=== PATIENT | female | born 2000 | race Hispanic/Latino ===

== ENCOUNTER 2021-12-29 11:21 | Emergency (ER) | payer OTHER ==
[~2021-12-29] VITALS: Ht 154.9 cm; Wt 49.9 kg
[2021-12-29 11:52] LABS: APPEARANCE,URINE CLEAR (CLEAR); BILIRUBIN,URINE NEGATIVE (NEGATIVE); COLOR,URINE YELLOW (YELLOW); GLUCOSE, URINE (UA) NEGATIVE (NEGATIVE); KETONES,URINE 5 mg/dL (NEGATIVE); LEUKOCYTE ESTERASE ,URINE NEGATIVE (NEGATIVE); NITRATE,URINE NEGATIVE (NEGATIVE); OCCULT BLOOD,URINE MODERATE (NEGATIVE); PH,URINE 7.5 (5.0-8.0); PROTEIN,URINE 100 mg/dL (NEGATIVE); UROBILINOGEN,URINE 0.2 mg/dL (0.2-1.0)
[2021-12-29 12:04] LABS: BACTERIA,URINE Moderate /HPF (None Seen); RBC,URINE 0-1 /HPF (0-1); SQUAMOUS EPITHELIAL CELL,UR Few /HPF (0-2)
[2021-12-29] MEDS ORDERED: 0.9%NACL 1000ML 1,000 ML IV ONE (13:00)
[2021-12-29] MEDS ORDERED: ONDANSETRON 4MG INJ IVP ONE (13:00)
[2021-12-29] MEDS ORDERED: ONDA4TAB10 PO (14:17)
[2021-12-29] MEDS ORDERED: OMEP20TA2 PO (14:17)
[2021-12-29 14:41] LABS: BASOPHILS % (AUTO) 0.5 % (0.0-5.0); EOSINOPHILS % (AUTO) 0.6 % (0.0-8.0); HEMATOCRIT 37.1 % (36-48); LYMPHOCYTES % (AUTO) 8.9 % (21.0-51.0); MEAN CORPUSCULAR HEMOGLOBIN 29.6 pg (27.0-33.0); MEAN CORPUSCULAR VOLUME 87.3 fL (79-99); MONOCYTES % (AUTO) 6.6 % (3.0-13.0); NEUTROPHILS % (AUTO) 79.8 % (40.0-77.0); PLATELET COUNT (AUTO) 256 K/uL (130-400); RED BLOOD CELL COUNT(AUTO) 4.25 MIL/uL (4.00-5.50); RED CELL DISTRIBUTION WIDTH 13.2 % (11.0-15.5); WHITE BLOOD COUNT (AUTO) 13.5 K/uL (4.8-10.8)
[2021-12-29 14:52] LABS: CREATININE 0.7 mg/dL (0.5-1.5); POTASSIUM 3.4 mmol/L (3.5-5.1)
[2021-12-29 14:57] LABS: ALBUMIN 3.6 g/dL (3.5-5.0); BILIRUBIN,TOTAL 0.5 mg/dL (0.2-1.0)
[2021-12-29] MEDS ORDERED: CEPH500B PO (15:08)
[2021-12-29 15:24] VITALS: BP 111/60
== END 2021-12-29 15:23 | disposition home or self-care (01) ==
LOC: EDH 11:21
DX: K29.00 Acute gastritis without bleeding (principal); N39.0 Urinary tract infection, site not specified; F17.210 Nicotine dependence, cigarettes, uncomplicated; Z79.899 Other long term (current) drug therapy
CPT/HCPCS: 36415; 76705; 76770; 80053; 81001; 81025; 83690; 85025; 87077; 87088; 87186; 96361; 96374; 99284; J2405; J7030

== ENCOUNTER → 2025-04-13 | Emergency (ER) | payer SELFPAY ==
[~2025-04-13] VITALS: Ht 152.4 cm; Wt 54.4 kg
[~2025-04-13] MED LIST: CEPH500B PO; LIDOCAINE HCL 2% VISCOUS 15 ML UDCUP PO ONE; MAG/ALUM/SIMETH 30 ML UDCUP PO ONE; OMEP20TA2 PO; ONDA-243 PO
[2025-04-13 10:48] VITALS: BP 129/98; PULSE 74; RESP 18; TEMP 97.9
--- NOTE | 2025-04-13 11:12 | EKG ---
[facility] Test Date: 2025-04-13 Test Time: 10:50:33 Pat Name: SAWYER CUBA Department: ED Room: Gender: F Gas Desulfurizer: 9920 : 2000 Requested By: RON POLO Order Number: [id number] Reading MD: Irvin Herrera Measurements Intervals [place] Rate: 64 P: 65 [place]: 142 QRS: 59 QRSD: 83 T: 39 QT: 394 QTc: 406 Interpretive Statements Sinus rhythm Atrial premature complexes in couplets No previous ECG available for comparison Electronically Signed On 04-14-2025 16:33:19 CDT by Irvin Herrera Please click the below link to view image of tracing.
[2025-04-13 11:20] LABS: IMMATURE GRANULOCYTE ABSOLUTE 0.10 K/uL (0-1); NUCLEATED RED BLOOD CELLS 0.0 % (0.0-0.19); PLATELET COUNT (AUTO) 238 K/uL (130-400); RED BLOOD CELL COUNT(AUTO) 4.95 MIL/uL (4.00-5.50); RED CELL DISTRIBUTION WIDTH 12.0 % (11.0-15.5); WHITE BLOOD COUNT (AUTO) 11.4 K/uL (4.8-10.8)
[2025-04-13 11:32] LABS: ASPARTATE AMINOTRANSFERASE 21.0 U/L (10-37); CREATININE 0.7 mg/dL (0.5-1.0); GLOMERULAR FILTR. RATE CALC 122.0 mL/min (>90); GLUCOSE,RANDOM 125.0 mg/dL (70-105); SODIUM SERUM 139.0 mmol/L (136-145); TOTAL PROTEIN, SERUM 8.1 g/dL (6.0-8.3); UREA NITROGEN, BLOOD 13.0 mg/dL (7-18)
--- NOTE | 2025-04-13 13:37 | ERN ---
General Chief Complaint: Multiple Complaints Stated Complaint: CP Time Seen by MD: 10:51 Time Seen by Midlevel: 10:51 Source: patient History of Present Illness Initial Comments Patient is a 24-year-old female presenting to the ER with multiple complaints. She reports midepigastric abdominal pain, chest pain that radiates up to her neck. Nausea. Patient states she was seen at another local ER but was not properly evaluated because they were "under equipped". Allergies: Coded Allergies: No Known Allergies (Unverified Allergy, Unknown, 12/29/21) Home Meds Active Scripts Cephalexin Monohydrate (Keflex) 500 Mg Cap, 500 MG PO QID for 7 Days, #28 CAP Prov:KWESI GARCIA MD 12/29/21 Ondansetron (Ondansetron Odt) 4 Mg Tab.rapdis, 4 MG PO TID for vomiting, #30 TAB Prov:KWESI GARCIA MD 12/29/21 Omeprazole Magnesium (Prilosec Otc) 20 Mg Tablet.dr, 20 MG PO DAILY, #30 TAB Prov:KWESI GARCIA MD 12/29/21 Past Medical History Past Medical History: GERD Past Surgical History: None Family History Family History: CAD Social History Social History: Smokers, Drugs, ETOH ROS Dictation CONSTITUTIONAL: Negative except for HPI HEAD/FACE: Negative except for HPI EENT: Negative except for HPI RESPIRATORY: Negative except for HPI GASTROINTESTINAL/ABDOMINAL: Negative except for HPI GENITOURINARY: Negative except for HPI MUSCULOSKELETAL: Negative except for HPI INTEGUMENTARY: Negative except for HPI NEUROLOGICAL/PSYCH: Negative except for HPI HEMATOLOGIC/LYMPHATIC: Negative except for HPI All Systems Negative, Except as noted above. 13 point review of systems assessed and all negative except for above. Physical Exam Physical Exam Dictation PHYSICAL EXAM: GENERAL: alert, tearful during my examination HEENT: EOMI, Sclera non icteric, moist mucosa NECK: Supple, no JVD, trachea midline LUNGS: Clear breath sounds bilaterally. No wheezes HEART: Regular rate and rhythm. Normal S1 and S2, without murmurs ABD: Abdomen soft, nontender. Bowel sounds present EXT: No clubbing or cyanosis, NEURO: Alert and oriented to person, follows commands Results Laboratory and Microbiology Lab and Micro Result Laboratory Tests Test 04/13/25 11:14 White Blood Count 11.4 K/uL (4.8-10.8) H Red Blood Count 4.95 MIL/uL (4.00-5.50) Hemoglobin 15.1 g/dL (12.0-16.0) Hematocrit 44.3 % (36-48) Mean Corpuscular Volume 89.5 fL (79-99) Mean Corpuscular Hemoglobin 30.5 pg (27.0-33.0) Mean Corpuscular Hemoglobin Concent 34.1 g/dL (32.0-36.0) Red Cell Distribution Width 12.0 % (11.0-15.5) Platelet Count 238 K/uL (130-400) Mean Platelet Volume 10.4 fL (7.5-10.5) Immature Granulocyte % (Auto) 0.9 % (0-1) Neutrophils (%) (Auto) 83.8 % (40.0-77.0) H Lymphocytes (%) (Auto) 10.4 % (21.0-51.0) L Monocytes (%) (Auto) 3.6 % (3.0-13.0) Eosinophils (%) (Auto) 0.9 % (0.0-8.0) Basophils (%) (Auto) 0.4 % (0.0-5.0) Neutrophils # (Auto) 9.5 K/uL (1.8-7.7) H Lymphocytes # (Auto) 1.2 K/uL (1.0-4.8) Monocytes # (Auto) 0.4 K/uL (0.1-1.0) Eosinophils # (Auto) 0.10 K/uL (0.00-0.70) Basophils # (Auto) 0.04 K/uL (0.00-0.20) Absolute Immature Granulocyte (auto 0.10 K/uL (0-1) Nucleated Red Blood Cells 0.0 % (0.0-0.19) Sodium Level 139 mmol/L (136-145) Potassium Level 3.6 mmol/L (3.5-5.1) Chloride Level 104 mmol/L (101-111) Carbon Dioxide Level 23 mmol/L (21-32) Blood Urea Nitrogen 13 mg/dL (7-18) Creatinine 0.7 mg/dL (0.5-1.0) Glomerular Filtration Rate Calc 122 mL/min (>90) Random Glucose 125 mg/dL (70-105) H Total Calcium 9.3 mg/dL (8.5-10.1) Magnesium Level 1.70 mg/dL (1.80-2.40) L Total Bilirubin 0.5 mg/dL (0.2-1.0) Aspartate Amino Transf (AST/SGOT) 21 U/L (10-37) Alanine Aminotransferase (ALT/SGPT) 21 U/L (12-78) Alkaline Phosphatase 57 U/L (50-136) Troponin I High Sensitivity < 4 ng/L (4-50) L Total Protein 8.1 g/dL (6.0-8.3) Albumin 4.5 g/dL (3.5-5.0) Lipase 45 U/L (16-77) Serum Test, Qualitative NEGATIVE (NEGATIVE) Labs Reviewed?: Yes MDM 24-year-old female presenting with multiple complaints. Basic labs obtained however the patient eloped from the emergency department. Her CBC and chemistries look unremarkable. EKG shows no acute ischemic changes. ED Course Orders Procedure Category Date Status Time 12 Lead Ekg Tracing- EKG 04/13/25 Complete Technical 10:59 Cbc With Differential LAB 04/13/25 Complete 10:59 Comprehensive LAB 04/13/25 Complete Metabolic Panel 10:59 Lipase LAB 04/13/25 Complete 10:59 Testing, LAB 04/13/25 Complete Serum Hcg 10:59 Magnesium LAB 04/13/25 Complete 10:59 Troponin I High LAB 04/13/25 Complete Sensitivity 10:59 Morphine 2mg Syg PHA 04/13/25 Complete (Morphine 2mg Syg) 11:00 Ondansetron 4mg Inj PHA 04/13/25 Complete (Zofran 4mg Inj) 11:00 Chest 1vw RAD 04/13/25 Logged 11:00 Ondansetron 4mg Inj PHA 04/13/25 Complete (Zofran 4mg Inj) 12:00 Lidocaine Hcl 2% PHA 04/13/25 Complete Viscous (Lidocaine Hcl 12:00 Mag/Alum/Simeth 30ml PHA 04/13/25 Complete (Maalox Plus 30ml) 12:00 Current Medications Medications (Trade) Dose Ordered Sig/Ravinder Route PRN Reason Start Time Stop Time Status Last Admin Dose Admin Al Hydroxide/Mg Hydroxide (MAALox PLUS 30ML) 30 ml ONCE ONCE PO 04/13/25 12:00 04/13/25 12:01 DC Lidocaine HCl (Lidocaine HCl 2% Viscous) 10 ml ONCE ONCE PO 04/13/25 12:00 04/13/25 12:01 DC Morphine Sulfate (morPHINE 2MG SYG) 2 mg ONCE ONCE IVP 04/13/25 11:00 04/13/25 11:02 DC Ondansetron HCl (zoFRAN 4MG INJ) 4 mg ONCE ONCE IVP 04/13/25 11:00 04/13/25 11:02 DC Ondansetron HCl (zoFRAN 4MG INJ) 4 mg ONCE ONCE IVP 04/13/25 12:00 04/13/25 12:01 DC Vital Signs Date Time Temp Pulse Resp B/P (MAP) Pulse Ox O2 Delivery O2 Flow Rate FiO2 04/13/25 10:48 97.9 74 18 129/98 100 Room Air 0 DX & DISP Disposition: Other(Comment) (Eloped) Departure Impression: Primary Impression: Eloped from emergency department Condition: Stable Referrals: SELF,REFERRAL (PCP) I have reviewed the case, and I agree with, Diagnosis and Plan I performed the substantive portion of the visit. I have reviewed and personally made and approve the management plan that is documented in the note by myself or the YUNIEL. I acknowledge for responsibility for the patient's management plan. RON POLO PAC Apr 13, 2025 13:37
== END | disposition left against medical advice (07) ==
LOC: EDH 10:46
DX: R10.13 Epigastric pain (principal); R07.89 Other chest pain; R11.0 Nausea; F17.200 Nicotine dependence, unspecified, uncomplicated; Z53.29 Procedure and treatment not carried out because of patient's decision for other reasons; Z79.899 Other long term (current) drug therapy
CPT/HCPCS: 36415; 80053; 83690; 83735; 84484; 84703; 85025; 93005; 99284